=== PATIENT | male | born 1955 | race Caucasian/White ===

== ENCOUNTER 2019-01-11 12:03 | Day surgery (SDC) | payer BC, SELFPAY ==
[2019-01-11 12:27] VITALS: BP 106/64; PULSE 58; RESP 14; TEMP 36.7; O2SAT 97
[2019-01-11] MEDS: Lidocaine 2% Multi-Dose 50 ML VIAL (13:01)
--- NOTE | 2019-01-11 13:51 | W.PM.DSUDISC ---
Discharge Plan Disposition Patient Disposition: HOME Condition: Improving Discharge Details Attending Provider: Richard Burdick Primary Care Provider: Zuleyka Seymour Home Meds and New Rx's Prescriptions: No Action tadalafil [Cialis] 5 mg tablet 5 mg PO DAILY Qty: 20 RF: 12 Discharge Instructions Additional Instructions: Keep your left hand elevated above heart level as needed for the next 48 hours to reduce pain and swelling. This will also reduce the throbbing sensation. Expect a small amount of bloody drainage on the gauze bandage. For showering tomorrow, cover your bandage with a plastic bag and a rubber band about the forearm to keep the bandages dry and to allow the wound to seal. On , 01/13/19, you may remove your bandages by pulling them off or by soaking them off and get your wound wet in the shower with soap and water. Gently pat the stitches dry and cover them with a bandaid. Avoid flexing the distal interphalangeal joint forcefully until the stitches are removed. A simple piece of adhesive tape over the bandaid works well for this. Avoid getting your wound wet in moreno water until the stitches are removed. Follow-up with Dr. Benítez's office ([phone]) next week to schedule suture removal depending on your healing rate. Take tylenol,advil or aleve for milder pain.Tylenol may be taken at the same time as advil,or at the same time as aleve as they are metabolized differently and are not cross toxic. Take norco (hydrocodone 5/325mg) 1-2 every 4 hours for more serious pain. [facility] regulations limit the amount of norco that can be prescribed to 18 tablets. Activity:: Elevate Remove Dressings/Wound Care:: 48 hours Shower/Bathe:: 48 hours Diet:: As Tolerated Discharge Orders Discharge Orders: Discharge Order (Routine); Ordered 01/11/19 Ordered By: Richard Burdick DS: Diagnosis Discharge Diagnosis (1) Digital mucous cyst of finger of left hand: Status: Acute
--- NOTE | 2019-01-11 14:09 | PDOC.DSDIS_ITS ---
Discharge Plan Disposition Patient Disposition: HOME Condition: Improving Discharge Details Attending Provider: Richard Burdick Primary Care Provider: Zuleyka Seymour Home Meds and New Rx's Prescriptions: No Action tadalafil [Cialis] 5 mg tablet 5 mg PO DAILY Qty: 20 RF: 12 Discharge Instructions Additional Instructions: Keep your left hand elevated above heart level as needed for the next 48 hours to reduce pain and swelling. This will also reduce the throbbing sensation. Expect a small amount of bloody drainage on the gauze bandage. For showering tomorrow, cover your bandage with a plastic bag and a rubber band about the forearm to keep the bandages dry and to allow the wound to seal. On , 01/13/19, you may remove your bandages by pulling them off or by soaking them off and get your wound wet in the shower with soap and water. Gently pat the stitches dry and cover them with a bandaid. Avoid flexing the distal interphalangeal joint forcefully until the stitches are removed. A simple piece of adhesive tape over the bandaid works well for this. Avoid getting your wound wet in moreno water until the stitches are removed. Follow-up with Dr. Benítez's office ([phone]) next week to schedule suture removal depending on your healing rate. Take tylenol,advil or aleve for milder pain.Tylenol may be taken at the same time as advil,or at the same time as aleve as they are meta bolized differently and are not cross toxic. Take norco (hydrocodone 5/325mg) 1- 2 every 4 hours for more serious pain. [facility] regulations limit the amount of norco that can be prescribed to 18 tablets. Activity:: Elevate Remove Dressings/Wound Care:: 48 hours Shower/Bathe:: 48 hours Diet:: As Tolerated Discharge Orders Discharge Orders: Discharge Order (Routine); Ordered 01/11/19 Ordered By: Richard Burdick DS: Diagnosis Discharge Diagnosis (1) Digital mucous cyst of finger of left hand: Status: Acute
--- NOTE | 2019-01-11 14:39 | ROE_ITS ---
DATE OF PROCEDURE: January 11, 2019 PREOPERATIVE DIAGNOSIS: Mucous cyst DIP joint left middle finger. POSTOPERATIVE DIAGNOSIS: Same. PROCEDURE: Excision of mucous cyst left middle finger DIP joint with debridement of osteophytes. SURGEON: Richard Burdick M.D. YOUTH DEVELOPMENT SPECIALIST: Nurse. ANESTHETIC: 2% Lidocaine block. PREP: ChloraPrep. 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 A few weeks ago he showed m e a problem he was having with his left middle finger. It appeared to be a mucous cyst. It was caus ing pressure on the general matrix to the fingernail bed, resulting in a concave nail bed along the r adial aspect of the distal phalanx. I explained to the patient that the pressure the mucous cyst cau ses altered growth of the nail plate by putting pressure on the nail matrix. The patient was having intermittent episodes of drainage from the mucous cyst, which was bothersome to him. He's recently t aken up rock climbing and his hands have gotten much stronger, but as a result of that, he's had some problems with his DIP joints and has another DIP joint of his little finger that is starting to both er him as well. I reviewed the patient the literature and how to treat mucous cysts and I re-reviewe d it in the Day Surgery holding area this afternoon. I discussed the risks and benefits. He underst ood and wished to proceed. PROCEDURE: The patient's left middle finger was marked. 2% Lidocaine was used to create an anesthet ic wheal at the metacarpophalangeal joint region. I waited several minutes and massaged the local an esthetic in place. The patient had complete numbness to the tip of the DIP joint and also numbness a long the ulnar aspect of the index finger and the radial aspect of the ring finger. A Mony drain was placed as a tourniquet at the base of the proximal phalanx. A longitudinal incision was made jus t radial to the midline where the mucous cyst was present. The skin and subcutaneous tissue were inc ised and hemostasis was controlled by direct pressure and the use of the [place] drain as a tournique t. The cyst was excised with a small rongeur. Using a #15 scalpel blade, I then undermined the exte nsor tendon, protecting it from injury with skin hooks and Ragnell retractors. A small, finely-tippe d rongeur was then used to remove osteophytes over the dorsal aspect of the distal phalanx near the D IP joint. This extended also radially so as to prevent a secondary cyst to form by removing the caps ule and preventing re-pressurization of the joint. The collateral ligaments were carefully protected . After addressing the radial side of the extensor tendon, I then mobilized the tendon and retracted it ulnarly and removed osteophytes over the dorsal ulnar aspect of the DIP joint. I then had the pa tient flex and extend his fingers - he could do so fully with no restriction in range of motion and n o evidence of extensor tendon injuries. The wound was then irrigated and then the skin closed with s utures of #5-0 Ethilon in a simple fashion. The wound was dressed with Xeroform gauze 4x4's and tube gauze. The patient was taken to the outpatient recovery room in satisfactory condition, tolerating the procedure well.
== END 2019-01-11 14:34 | disposition home or self-care (01) ==
PROVIDERS: PCP Family Medicine; Visit Provider Orthopaedic Surgery
PROC: (CPT 26160; principal; 2019-01-11 13:00)
DX: M67.442 Ganglion, left hand (principal); M25.742 Osteophyte, left hand
CPT/HCPCS: 26210; 26160

== ENCOUNTER 2025-01-27 00:26 | Outpatient (CLI) | payer MEDICARE, BC, SELFPAY ==
--- NOTE | 2025-01-27 | DI.MRI_ITS ---
Exam(s) MR LOWER EXTREMITY RT WO/W EXAM: MR LOWER EXTREMITY RT WO/W CLINICAL HISTORY: SOFT TISSUE MASS, SOFT TISSUE TUMOR RT FOOT. TECHNIQUE: Multiplanar multisequence MRI was performed. CONTRAST MATERIAL: IV Contrast: 14 mL of Dotarem contrast administered. COMPARISON: No exams were available for comparison FINDINGS: BONES/JOINTS: No evidence of fracture. There is curvilinear hypointense signal on the T1 weighted images seen paralleling the articular surface in the head of the 3rd metatarsal. The areas hyperintense on the T2 weighted images. There is no loss of volume. This may be related to arthrosis, trauma or stress fracture. There is a bipartite lateral sesamoid at the head of the 1st metatarsal. There is hyperintense signal seen within the lateral bipartite sesamoid and the adjacent plantar surface of the 1st metatarsal. This may reflect an arthritis or sesamoiditis. LIGAMENTS: The medial and lateral collateral ligaments are intact. MUSCULOTENDINOUS STRUCTURES: Visualized portion of the planar fascia is unremarkable. The visualized intrinsic muscles and tendons of the foot are unremarkable. SOFT TISSUES: There is a nonenhancing soft tissue mass between the 1st and 2nd toes. It measures 0.8 cm craniocaudad by 0.5 cm transverse by 1 cm long. It is isointense to muscle on the T1 weighted images, hyperintense on T2 weighted images and shows no enhancement following contrast administration. ENHANCEMENT: No suspicious enhancement identified. OTHER FINDINGS: None. IMPRESSION: 0.8 x 0.5 x 1 cm mass in the subcutaneous tissues between the 1st and 2nd toes. The finding is nonspecific and the differential includes benign and malignant causes including fibromatosis, Reeder's neuroma, neoplastic soft tissue sarcomas. Biopsy should be considered for further characterization. DATA REPOSITORY:
[2025-01-27] MEDS: Gadoterate meglumine 20 ML VIAL 14 ML IVP (08:05)
[2025-01-27] MEDS: Normal Saline Flush 10 ML SYR IJ (08:07)
== END 2025-01-27 00:46 ==
PROVIDERS: PCP Family Medicine; Visit Provider Podiatrist
DX: R93.89 Abnormal findings on diagnostic imaging of other specified body structures (principal)
CPT/HCPCS: 73720